=== PATIENT | male | born 1985 | race Caucasian/White ===

== ENCOUNTER 2024-06-21 17:50 | Emergency (ER) | payer SELFPAY ==
[2024-06-21] VITALS (8 sets, daily range): BP systolic 109–140; BP diastolic 69–99; PULSE 70–82; RESP 17; TEMP 36.7; O2SAT 95–99; BMI 21.6
--- NOTE | 2024-06-21 19:26 | CTR_ITS ---
PROCEDURE INFORMATION: Exam: CT Abdomen And Pelvis With Contrast Exam date and time: 06/21/2024 8:10 PM Age: 38 years old Clinical indication: Other: See exam info; Additional info: Possible omphalitis TECHNIQUE: Imaging protocol: Computed tomography of the abdomen and pelvis with contrast. Radiation optimization: All CT scans at this facility use at least one of these dose optimization techniques: automated exposure control; mA and/or kV adjustment per patient size (includes targeted exams where dose is matched to clinical indication); or iterative reconstruction. Contrast material: OMNI 350; Contrast volume: 100 ml; Contrast route: INTRAVENOUS (IV); COMPARISON: No relevant prior studies available. RADIATION DOSE METRICS: Total DLP (mGy-cm): 357 FINDINGS: Liver: Normal. No mass. Gallbladder and biliary ducts: Normal. No calcified stones. No ductal dilation. Pancreas: Normal. No ductal dilation. Spleen: Normal. No splenomegaly. Adrenal glands: Normal. No mass. Kidneys and ureters: Normal. No hydronephrosis. Stomach and bowel: Unremarkable. No obstruction. No mucosal thickening. Appendix: No evidence of appendicitis. Intraperitoneal space: Unremarkable. No free air. No significant fluid collection. Vasculature: Unremarkable. No abdominal aortic aneurysm. Lymph nodes: Unremarkable. No enlarged lymph nodes. Urinary bladder: Unremarkable as visualized. Reproductive: Unremarkable as visualized. Bones/joints: Unremarkable. No acute fracture. Soft tissues: Unremarkable. Other findings: Small focal soft tissue density with surrounding fat stranding at the level of the umbilicus measuring 2.6 x 2.2 cm in axial dimensions. Mild overlying skin thickening. CT/CT abdomen pelvis w con* [id number] IMPRESSION: Focal soft tissue density/fat stranding at the level of the umbilicus with overlying skin thickening may represent an infectious/inflammatory process. Recommend clinical correlation and imaging follow-up as warranted. No evidence of abscess formation
--- NOTE | 2024-06-21 19:27 | W.ED.ABDPA2 ---
HPI - Abdominal Pain General: Chief Complaint: Abdominal Pain Stated Complaint: abd pain Time Seen by Provider: 06/21/24 18:40 Source: patient and family Mode of arrival: ambulatory Limitations: no limitations History of Present Illness: This patient comes to the emergency room because any concern he might have a bellybutton hernia. 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 Over the past few days he noted some soreness around his umbilicus and development of a small swelling in that area. He states that he has some feeling of fullness at times and also has felt constipated. He states he is eating okay and urinating okay but his bowel movements have slowed down. He denies any fevers or chills. He denies any prior abdominal surgeries. He states he is in pretty good health takes no medications does smoke tobacco and occasionally or rarely drinks alcohol. MD elicited complaint: abdominal pain Associated Symptoms: Reports constipation; Denies chills, diarrhea, dysuria, fever(s), nausea and vomiting Related Data Previous Rx's Medication Instructions Recorded cephalexin 500 mg capsule 500 mg PO TID 7 days #21 caps 06/21/24 Allergies Allergy/AdvReac Type Severity Reaction Status Date / Time No Known Allergies Allergy Verified 06/21/24 18:09 Review of Systems Const: Denies: fever(s) or chills Resp: Denies: dyspnea, productive cough or non-productive cough GI: Reports: constipation; Denies: nausea, vomiting or diarrhea : Denies: flank pain, difficulty urinating, dysuria or urinary frequency Musc: Denies: neck pain, back pain, extremity pain or extremity swelling Skin/Breast: Reports: erythema and skin tenderness Neuro: Denies: headache(s), numbness in extremities or weakness in extremities Michael/Lymph: Denies: easy bruising or easy bleeding Physical Exam Narrative: EXAM NARRATIVE: He is healthy appearing and is in no acute distress and cooperative during examination. He makes good eye contact speech is goal-directed. Const: COMMON NORMALS: no acute distress, average body habitus, patient oriented x3 and healthy appearing GENERAL APPEARANCE: cooperative and comfortable HENMT: COMMON NORMALS: normocephalic, Normal nasal mucous membranes and turbinates present and moist oral mucous membranes HEAD & SCALP: normocephalic NOSE: Normal nasal mucous membranes and turbinates present Eye: COMMON NORMALS: Equal, round and reactive pupils present and no scleral icterus PUPIL: Yes Equal, round and reactive pupils present Neck/C-Spine: COMMON NORMALS: full ROM and no lymphadenopathy Chest: COMMONS NORMALS: normal inspection of the chest and normal palpation of entire chest wall Resp: COMMON NORMALS: normal respiratory effort, No retractions, No use of accessory muscles and clear to auscultation bilaterally AUSCULTATION: clear to auscultation bilaterally Cardio: COMMON NORMALS: regular rate, regular rhythm, No murmurs present (Cardio) and Peripheral pulses 2+ throughout RATE: regular rate RHYTHM: regular rhythm PERIPHERAL PULSES: Peripheral pulses 2+ throughout GI: OTHER: Abdominal examination reveals area around his umbilicus to be slightly swollen and tender. The abdominal exam in the periumbilical region is also tender to palpation. His umbilicus has some crusting and scabbing over what appears to be a protuberant umbilical stump. There is purulent drainage of fluid from around the stump region. There is no significant skin erythema noted. No rebound or guarding is noted. : COMMON NORMALS: Yes no CVA tenderness BLADDER/KIDNEY EXAM: Yes no CVA tenderness Back/Pelvis: COMMON NORMALS: no CVA tenderness, thoracic and lumbar spine normal to inspection and no thoracic nor lumbar tenderness Extremity: COMMON NORMALS: normal to inspection and full ROM Neuro: COMMON NORMALS: patient oriented x3, moves all extremities, no focal motor deficits and no sensory deficits noted Skin: COMMON NORMALS: no wounds and turgor normal GENERAL SKIN EXAM: turgor normal Course Reevaluation(s): Reevaluation #1: Patient remained stable without any new or focal findings. Discussed current findings their implications and limitations. No evidence of serious deep space infection, abscess etc. at this time. No evidence of umbilical hernia etc. Consistent with a superficial cellulitis. Will start him on generation cephalosporin discussed wound care and discharged to outpatient follow-up with return precautions Time: 21:33 Vital Signs: Vital signs: Vital Signs Temperature 98.0 F 06/21/24 18:05 Pulse Rate 70 06/21/24 21:00 Respiratory Rate 17 06/21/24 20:00 Blood Pressure 109/77 06/21/24 21:00 Pulse Oximetry 98 06/21/24 21:00 Oxygen Delivery Me thod Room Air 06/21/24 21:00 MDM - Abdominal Pain Medical Decision Making This patient presented no other significant GI symptoms other than some mild constipation. No history of trauma other than his usual workday activities. Medical examination suggested some inflammation around the umbilical stump with some mild amount of purulent drainage from the skin folds. No significant erythema. No peritoneal signs noted. Concerned about possible colitis or other deep space infection abscess etc. prompted CBC chemistries and imaging. Imaging was reassuring without any evidence of deep space infection etc. Consistent with a superficial cellulitis. Thought to be amenable to first generation cephalosporins usually staph or strep related. Will go ahead and start him on antibiotics and discussed return precautions and home care. Both he and spouse acknowledged her discussion. Lab Data I reviewed the patient's lab results. 06/21/24 19:43 06/21/24 19:43 Labs/Radiology: Radiology Impressions Abdomen/Pelvis CT 06/21/24 19:26 IMPRESSION: Focal soft tissue density/fat stranding at the level of the umbilicus with overlying skin thickening may represent an infectious/inflammatory process. Recommend clinical correlation and imaging follow-up as warranted. No evidence of abscess formation Laboratory Results WBC 10.44 10^3/uL (3.29-11.43) 06/21/24 19:43 RBC 4.71 10^6/uL (3.85-5.65) 06/21/24 19:43 Hgb 14.50 g/dL (11.27-16.99) 06/21/24 19:43 Hct 43.6 % (37-53) 06/21/24 19:43 MCV 92.6 fl (82-101) 06/21/24 19:43 MCH 30.8 pg (27-33) 06/21/24 19:43 MCHC 33.3 g/dL (30-55) 06/21/24:43 RDW 12.1 % (12.1-15.1) 06/21/24 19:43 Plt Count 206 10^3/cmm (157-399) 06/21/24 19:43 MPV 9.8 fL (7.4-10.4) 06/21/24 19: Neut % (Auto) 77.8 % 06/21/24 19:43 Lymph % (Auto) 14.8 % 06/21/24 19:43 [place] % (Auto) 5.1 % 06/21/24 19:43 Eos % (Auto) 1.3 % 06/21/24 19:43 Baso % (Auto) 0.7 % 06/21/24 19:43 Neut # (Auto) 8.13 10^3/uL (1.8-7.7) H 06/21/24 19:43 Lymph # (Auto) 1.5 10^3/uL (0.8-4.8) 06/21/24 19:43 [place] # (Auto) 0.5 10^3/uL (0.2-0.9) 06/21/24 19:43 Eos # (Auto) 0.1 10^3/uL (0.0-0.8) 06/21/24 19:43 Baso # (Auto) 0.1 10^3/uL (0.0-0.1) 06/21/24 19:43 Nucleated RBC % (auto) 0 % 06/21/24 19:43 Nucleated RBCs # 0.0 /100WBC 06/21/24 19:43 Sodium 142 mmol/L (136-145) 06/21/24 19:43 Potassium 4.1 mmol/L (3.5-5.1) 06/21/24 19:43 Chloride 104 mmol/L (98-107) 06/21/24 19:43 Carbon Dioxide 27 mmol/L (22-29) 06/21/24 19:43 Anion Gap 15.1 (5-19) 06/21/24 19:43 BUN 16 mg/dL (6-20) 06/21/24 19:43 Creatinine 0.8 mg/dL (0.7-1.2) 06/21/24 19:43 GFR Calculation 107.1 mL/min (90-130) 06/21/24 19:43 Glucose 125 mg/dL (65-115) H 06/21/24 19:43 Calculated Osmolality 297 mOsm/kg (285-295) H 06/21/24 19:43 Calcium 9.4 mg/dL (8.5-10.5) 06/21/24 19:43 Total Bilirubin 0.4 mg/dL (0.15-1.2) 06/21/24 19:43 AST 15 U/L (0-40) 06/21/24 19:43 ALT 20 U/L (0-41) 06/21/24 19:43 Alkaline Phosphatase 43 U/L (40-130) 06/21/24 19:43 Total Protein 6.9 g/dL (6.6-8.7) 06/21/24 19:43 Albumin 4.4 g/dL (3.5-5.2) 06/21/24 19:43 Globulin 2.5 g/dL (1.3-4.6) 06/21/24 19:43 All radiology interpretation(s) finalized by discharge Discharge Plan Discharge Patient Disposition: Home Clinical Impression: Navel cellulitis Condition: Stable Prescriptions: New cephalexin 500 mg capsule 500 mg PO TID 7 Days Qty: 21 0RF Discharge Orders: Discharge ED (Routine); Ordered 06/21/24 Ordered By: Ángel Pack Discharge Diet: Usual diet Discharge Activity: Increase activity as tolerated Patient Instructions: Opioid Safety, Pain Management Activity Restrictions/Additional Instructions: As we discussed you have an infection of the skin and soft tissue is around your navel. We recommend using normal soap and water to clean this area 2-3 times daily. Apply a large Band-Aid over to protect it from your clothing and other trauma. We have prescribed an antibiotic you should take for the next week. Should you have increasing redness increasing drainage or nonresolution of your symptoms in the next 3 to 5 days or worsen at any time return to this or the nearest emergency department. Coding Level of Care Code ED [employer] Marketing Manager for [facility]
[2024-06-21 20:00] LABS: Basophils # 0.1 10^3/uL (0.0-0.1); Basophils % 0.7 %; Eosinophils # 0.1 10^3/uL (0.0-0.8); Eosinophils % 1.3 %; Hematocrit 43.6 % (37-53); Lymphocytes # 1.5 10^3/uL (0.8-4.8); Lymphocytes % 14.8 %; Mean Corpuscular HGB Conc 33.3 g/dL (30-55); Mean Corpuscular Hemoglobin 30.8 pg (27-33); Mean Corpuscular Volume 92.6 fl (82-101); Mean Platelet Volume 9.8 fL (7.4-10.4); Monocytes # 0.5 10^3/uL (0.2-0.9); Monocytes % 5.1 %; Neutrophils # 8.13 10^3/uL (1.8-7.7); Neutrophils % 77.8 %; Nucleated Red Blood Cells % 0 %; Platelet Count 206 10^3/cmm (157-399); Red Blood Count 4.71 10^6/uL (3.85-5.65); Red Cell Distribution Width 12.1 % (12.1-15.1); White Blood Count 10.44 10^3/uL (3.29-11.43)
[2024-06-21] MEDS: iohexol 350 mg/mL 500 mL Btl (per mL) IV (20:13)
[2024-06-21 20:17] LABS: Alanine Aminotransferase 20 U/L (0-41); Albumin Level 4.4 g/dL (3.5-5.2); Alkaline Phosphatase 43 U/L (40-130); Anion Gap 15.1 (5-19); Aspartate Amino Transferase 15 U/L (0-40); Blood Urea Nitrogen 16 mg/dL (6-20); Calcium 9.4 mg/dL (8.5-10.5); Carbon Dioxide 27 mmol/L (22-29); Chloride 104 mmol/L (98-107); Creatinine Clr Calc Pharmacy 112.3236; Globulin 2.5 g/dL (1.3-4.6); Glomerular Filtration Rate 107.1 mL/min (90-130); Glucose 125 mg/dL (65-115); Osmolality Calculated 297 mOsm/kg (285-295); Potassium 4.1 mmol/L (3.5-5.1); Sodium 142 mmol/L (136-145); Total Bilirubin 0.4 mg/dL (0.15-1.2); Total Protein 6.9 g/dL (6.6-8.7)
[2024-06-21] MEDS: cephALEXin 500 mg Capsule PO (21:28)
== END 2024-06-21 21:38 | disposition home or self-care (01) ==
PROVIDERS: Emergency Provider Emergency Medicine
DX: L03.316 Cellulitis of umbilicus (principal)
CPT/HCPCS: 74177; 80053; 85025; 99285; Q9967